=== PATIENT | male | born 1965 | race American Indian/Alaskan Native ===

== ENCOUNTER 2017-10-20 22:34 | Inpatient (IN) | payer OTHER ==
[2017-10-20] MEDS ORDERED: ASPIRIN PO ONE (22:50)
[2017-10-20] MEDS ORDERED: MORPHINE IV ONE (23:45)
[2017-10-20] MEDS ORDERED: TORADOL IV ONE (23:45)
[2017-10-20] MEDS ORDERED: ZOFRAN IV ONE (23:45)
[2017-10-20] MEDS ORDERED: CATAPRES PO ONE (23:45)
--- NOTE | 2017-10-20 23:49 | Emergency Department Report ---
ED Chest Pain HPI - General Chief Complaint: Chest Pain Stated Complaint: CHEST PAIN Time Seen by Provider: 10/20/17 23:38 Source: patient Mode of arrival: Ambulatory Limitations: No Limitations - History of Present Illness Initial Comments: 52-year-old male with no sniffing and past medical history presents to the hospital complaining of right-sided anterior lower rib pain. Pain started earlier today and worsened at 9 PM. Pain is sharp, constant, rated 10/10 intensity, worse with palpation, movement, and deep inspiration. No alleviating factors reported. Positive shortness of breath due to pain. He denies cough, fever, nausea, vomiting, diaphoresis, recent travel, calf tenderness, edema, history of PE/DVT, cocaine use, or smoking history. Patient presents with elevated blood pressure and has not seen a primary care doctor in "a long time". Patient denies heavy lifting or recent trauma. Severity scale (0 -10): 10 - Related Data Home Medications Medication Instructions Recorded Confirmed Last Taken No Known Home Medications [No 10/21/17 10/21/17 Unknown Reported Home Medications] Allergies Allergy/AdvReac Type Severity Reaction Status Date / Time No Known Allergies Allergy Verified 10/20/17 23:42 Heart Score - HEART Score History: Slightly suspicious EKG: Normal Age: 45-65 Risk factors: 1-2 risk factors Troponin: < normal limit HEART Score: 2 ED Review of Systems ROS: Stated complaint: CHEST PAIN Other details as noted in HPI Comment: All other systems reviewed and negative Other: General: Moderate distress secondary to pain Head exam: Atraumatic, normocephalic Eyes exam: Normal appearance, pupils equal reactive to light, extraocular movements intact ENT: Moist mucous membrane, normal oropharynx Neck exam: Normal inspection, full range of motion, no meningismus nontender Respiratory exam: Shallow breathing tachypnea and equal breath sounds, clear to auscultation bilaterally Cardiovascular: Tachycardic regular rhythm, reproducible right anterior lower rib tenderness Abdomen: Soft, nondistended, and nontender, with normal bowel sounds, no rebound, or guarding Extremity: Full range of motion normal inspection no deformity, no calf tenderness or edema Back: Normal Inspection, full range of motion, no tenderness Neurologic: Alert, oriented x3, cranial nerves intact, no motor or sensory deficit Psychiatric: normal affect, normal mood Skin: Warm, dry, intact ED Past Medical Hx - Past Medical History Previous Medical History?: No - Surgical History Past Surgical History?: No - Social History Smoking Status: Former Smoker Substance Use Type: None - Medications Home Medications: Home Medications Medication Instructions Recorded Confirmed Last Taken Type No Known Home Medications [No 10/21/17 10/21/17 Unknown History Reported Home Medications] ED Physical Exam - General Limitations: No Limitations - Other Other exam information: General: Positive distress secondary to pain Head exam: Atraumatic, normocephalic Eyes exam: Normal appearance, pupils equal reactive to light, extraocular movements intact ENT: Moist mucous membrane, normal oropharynx Neck exam: Normal inspection, full range of motion, no meningismus nontender Respiratory exam: Equal breath sounds bilaterally, no wheezes, rales, or crackles Cardiovascular: Tachycardic regular rhythm. Tenderness to right anterior lower ribs Abdomen: Soft, nondistended, and nontender, with normal bowel sounds, no rebound, or guarding Extremity: Full range of motion normal inspection no deformity, no calf tenderness or edema Back: Normal Inspection, full range of motion, no tenderness Neurologic: Alert, oriented x3, cranial nerves intact, no motor or sensory deficit Psychiatric: Positive distress secondary to pain Skin: Warm, dry, intact ED Course Vital Signs 10/20/17 10/20/17 10/21/17 22:59 23:30 00:00 Temperature 98.1 F Pulse Rate 75 118 H 111 H Respiratory 28 H 29 H 17 Rate Blood Pressure 161/126 155/117 180/115 O2 Sat by Pulse 98 96 94 Oximetry 10/21/17 10/21/17 10/21/17 00:30 01:01 01:30 Temperature Pulse Rate 111 H 110 H 109 H Respiratory 26 H 23 30 H Rate Blood Pressure 159/107 169/104 147/109 O2 Sat by Pulse 94 94 96 Oximetry 10/21/17 02:00 Temperature Pulse Rate 102 H Respiratory 27 H Rate Blood Pressure 148/110 O2 Sat by Pulse 93 Oximetry - Reevaluation(s) Reevaluation #1: 10/21/17 03:43 During ED stay patient required morphine, Zofran, Dilaudid, and Toradol to reduce his pain. Blood pressure minimally elevated despite pain control therefore kindly 0.1 mg ordered at this time. LANI score - Lani Score Age > 65: (0) No Aspirin use within the Past 7 Days: (0) No 3 or more CAD Risk Factors: (0) No 2 or more Angina events in past 24 hrs: (0) No Known CAD with more than 50% Stenosis: (0) No ST Deviation Greater than 0.5mm: (0) No ED Medical Decision Making - Lab Data Result diagrams: 10/20/17 23:24 10/20/17 23:24 Lab Results 10/20/17 10/20/17 10/20/17 Range/Units 23:24 23:24 23:24 WBC 11.0 (4.5-11.0) K/mm3 RBC 4.57 (3.65-5.03) M/mm3 Hgb 15.1 (11.8-15.2) gm/dl Hct 43.6 (35.5-45.6) % MCV 95 H (84-94) fl MCH 33 H (28-32) pg MCHC 35 H (32-34) % RDW 13.0 L (13.2-15.2) % Plt Count 280 (140-440) K/mm3 Lymph % (Auto) 11.5 L (13.4-35.0) % [place] % (Auto) 5.9 (0.0-7.3) % Eos % (Auto) 0.5 (0.0-4.3) % Baso % (Auto) 0.8 (0.0-1.8) % Lymph # 1.3 (1.2-5.4) K/mm3 [place] # 0.7 (0.0-0.8) K/mm3 Eos # 0.1 (0.0-0.4) K/mm3 Baso # 0.1 (0.0-0.1) K/mm3 Seg Neutrophils % 81.3 H (40.0-70.0) % Seg Neutrophils # 9.0 H (1.8-7.7) K/mm3 PT 17.1 H (12.2-14.9) Sec. INR 1.32 H (0.87-1.13) D-Dimer 3708.90 H (0-234) ng/mlDDU Sodium 133 L (137-145) mmol/L Potassium 3.7 (3.6-5.0) mmol/L Chloride 93.5 L (98-107) mmol/L Carbon Dioxide 22 (22-30) mmol/L Anion Gap 21 mmol/L BUN 4 L (9-20) mg/dL Creatinine 0.7 L (0.8-1.5) mg/dL Estimated GFR > 60 ml/min BUN/Creatinine Ratio 6 % Glucose 99 (75-100) mg/dL Calcium 9.5 (8.4-10.2) mg/dL Troponin T < 0.010 (0.00-0.029) ng/mL 10/21/17 Range/Units 02:17 WBC (4.5-11.0) K/mm3 RBC (3.65-5.03) M/mm3 Hgb (11.8-15.2) gm/dl Hct (35.5-45.6) % MCV (84-94) fl MCH (28-32) pg MCHC (32-34) % RDW (13.2-15.2) % Plt Count (140-440) K/mm3 Lymph % (Auto) (13.4-35.0) % [place] % (Auto) (0.0-7.3) % Eos % (Auto) (0.0-4.3) % Baso % (Auto) (0.0-1.8) % Lymph # (1.2-5.4) K/mm3 [place] # (0.0-0.8) K/mm3 Eos # (0.0-0.4) K/mm3 Baso # (0.0-0.1) K/mm3 Seg Neutrophils % (40.0-70.0) % Seg Neutrophils # (1.8-7.7) K/mm3 PT (12.2-14.9) Sec. INR (0.87-1.13) D-Dimer (0-234) ng/mlDDU Sodium (137-145) mmol/L Potassium (3.6-5.0) mmol/L Chloride (98-107) mmol/L Carbon Dioxide (22-30) mmol/L Anion Gap mmol/L BUN (9-20) mg/dL Creatinine (0.8-1.5) mg/dL Estimated GFR ml/min BUN/Creatinine Ratio % Glucose (75-100) mg/dL Calcium (8.4-10.2) mg/dL Troponin T < 0.010 (0.00-0.029) ng/mL - EKG Data -: EKG Interpreted by Me EKG shows normal: sinus rhythm, axis (qrs 55), QRS complexes (qrsd 87), ST-T waves (no stemi/ t inv) Rate: tachycardia (120) - EKG Data When compared to previous EKG there are: previous EKG unavailable - Radiology Data Radiology results: report reviewed cxr IMPRESSION: Right basilar opacities suggestive of infiltrate with small/moderate right-sided pleural effusion. Correlation with clinical exam requested. Suggested mild enlargement of the cardiac silhouette. Left lung clear. ct angio chest IMPRESSION: Scattered infiltrates identified in the lower lungs and a small area reactive lung tissue bilateral upper lungs, infiltrative process is suspected. Underlying pathology is not entirely excluded further evaluation after clinical therapy is recommended. A mild right effusion is seen. No pneumothorax. No evidence of pulmonary arterial emboli. - Medical Decision Making Chest pain Treatment with morphine, Toradol, Dilaudid, Zofran Positive infiltrates without signs of pulmonary embolism. Rocephin and azithromycin given Blood cultures pending No signs of pulmonary embolism or dissection Hypertension Newly diagnosed Remains elevated after pain control Clonidine 0.1 mg given - Differential Diagnosis pneumonia, PE, dissection, pneumothorax, pleurisy, rib contusion Critical Care Time: No Critical care attestation.: If time is entered above; I have spent that time in minutes in the direct care of this critically ill patient, excluding procedure time. ED Disposition Clinical Impression: Pneumonia, HTN (hypertension), Right-sided chest pain Disposition: OP ADMIT IP TO THIS HOSP Is pt being admited?: Yes Condition: Stable Time of Disposition: 03:46 (Dr Mcmahon/hosp)
[2017-10-21 00:03] LABS: INR 1.32 (0.87-1.13)
[2017-10-21 00:05] LABS: Basophils # (Auto) 0.1 K/mm3 (0.0-0.1); Basophils % (Auto) 0.8 % (0.0-1.8); Eosinophils # (Auto) 0.1 K/mm3 (0.0-0.4); Eosinophils % (Auto) 0.5 % (0.0-4.3); Hematocrit 43.6 % (35.5-45.6); Hemoglobin 15.1 gm/dl (11.8-15.2); Lymphocytes # (Auto) 1.3 K/mm3 (1.2-5.4); Lymphocytes % (Auto) 11.5 % (13.4-35.0); Mean Corpuscular HGB Conc 35 % (32-34); Mean Corpuscular Hemoglobin 33 pg (28-32); Mean Corpuscular Volume 95 fl (84-94); Monocytes # (Auto) 0.7 K/mm3 (0.0-0.8); Monocytes % (Auto) 5.9 % (0.0-7.3); Platelet Count 280 K/mm3 (140-440); Red Blood Count 4.57 M/mm3 (3.65-5.03)
--- NOTE | 2017-10-21 00:12 | XRay Report ---
FINAL REPORT EXAM: XR CHEST 1V AP HISTORY: right chest pain TECHNIQUE: Single AP portable radiograph of the chest was obtained. PRIORS: None. FINDINGS: Right basilar ill-defined opacities with blunting of the costophrenic angle. No significant left pleural effusion. No pneumothorax. Suggested mild enlargement of the cardiac silhouette. Tortuosity of the thoracic aorta. No acute osseous abnormality. IMPRESSION: Right basilar opacities suggestive of infiltrate with small/moderate right-sided pleural effusion. Correlation with clinical exam requested. Suggested mild enlargement of the cardiac silhouette. Left lung clear.
[2017-10-21 00:13] LABS: BUN/Creatinine Ratio 6; Blood Urea Nitrogen 4 mg/dL (9-20); Calcium 9.5 mg/dL (8.4-10.2); Hemolysis Index 7
[2017-10-21] MEDS ORDERED: ROCEPHIN/NS 1 GM/50 ML 1 GM/50 ML BAG IV ONE (00:18)
[2017-10-21] MEDS ORDERED: ZITHROMAX 500 MG in NACL 0.9% 250ML 250 ML IV ONE (00:18)
[2017-10-21] MEDS ORDERED: cefTRIAXone 1 GM in NACL 0.9% 20 ML IV ONE (00:30)
[2017-10-21] MEDS ORDERED: DILAUDID IV ONE ×2 (02:21→02:57)
[2017-10-21] MEDS ORDERED: DILAUDID ONE (02:22)
--- NOTE | 2017-10-21 03:23 | Cat Scan Report ---
FINAL REPORT PROCEDURE: CT ANGIO CHEST TECHNIQUE: Computerized tomographic angiography of the chest was performed after the IV injection of iodinated nonionic contrast including image processing. The image data was postprocessed using 2-dimensional multiplanar reformatted (MPR) and 3-dimensional (MIP and/or volume rendered) techniques. HISTORY: sharp right sided cp COMPARISON: No prior studies are available for comparison. FINDINGS: Heart and pericardium: Normal. Thoracic aorta: Normal. Pulmonary vasculature: There is no evidence of pulmonary arterial emboli. Lymph nodes: No enlarged thoracic lymph nodes. Lungs: Scattered infiltrative process identified in the right lower lung with moderate effusion noted. Slight infiltrate left lower lung. Small area of increased density identified in both upper lungs anteriorly. This may represent infiltrative process this patient. Further evaluation after clinical therapy is recommended. Underlying pathology is not entirely excluded on the basis of this study. Mild right effusion is noted.. Pleural space: Mild right effusion.. Musculoskeletal structures: No significant abnormality. Upper abdominal structures: No significant abnormality. IMPRESSION: Scattered infiltrates identified in the lower lungs and a small area reactive lung tissue bilateral upper lungs, infiltrative process is suspected. Underlying pathology is not entirely excluded further evaluation after clinical therapy is recommended. A mild right effusion is seen. No pneumothorax. No evidence of pulmonary arterial emboli.
[2017-10-21] MEDS ORDERED: CATAPRES PO ONE (03:43)
[2017-10-21] MEDS ORDERED: APRESOLINE ONE (05:26)
[2017-10-21] MEDS: APRESOLINE IV PRN ×4 (05:29→20:56)
[2017-10-21] MEDS: ZOFRAN IV PRN ×2 (08:00→13:38)
--- NOTE | 2017-10-21 09:10 | History and Physical Report ---
CHIEF COMPLAINT: Right lateral chest wall pain. The patient said pain started yesterday and worst was the evening time. Pain is sharp in consistency, was constant and rated about 10/10. The pain was worse with deep breathing and with movement and palpation. There were no alleviating symptoms. There was also history of associated shortness of breath and no cough. No fever, no nausea, no vomiting, diaphoresis. The patient also noted that the blood pressure was elevated. Still he has not seen his primary care doctor in a very long time. There is no history of trauma or heavy weightlifting. PAST MEDICAL HISTORY: The patient's past medical history is unremarkable. PAST SURGICAL HISTORY: Unremarkable. FAMILY HISTORY: Family history is noncontributory. SOCIAL HISTORY: The patient is a former cigarette smoker but does not smoke currently. Does not use illicit drugs. Does not drink alcohol. MEDICATIONS: There are no known home medications for the patient. ALLERGIES: There are no known drug allergies. REVIEW OF SYSTEMS: CONSTITUTIONAL: There is no fever, no chills, no diaphoresis. HEENT: There is no headache or sore throat. CARDIOVASCULAR: There is lateral chest wall pleuritic pain. No orthopnea. RESPIRATORY: There is shortness of breath with no cough. GASTROINTESTINAL: There is no nausea, no vomiting, no abdominal pain, diarrhea or constipation but there is poor appetite according to the patient. NEUROLOGICAL: There is no numbness, no dizziness, no altered mental status: MUSCULOSKELETAL: No joint pain or swelling. DERMATOLOGICAL: There is no skin rash or itching. GENITOURINARY: There is no dysuria or hematuria. Rest of system review is normal. PHYSICAL EXAMINATION: GENERAL: At the time of exam, the patient was found to be alert, oriented x 3 and not in acute distress. VITAL SIGNS: Shows normal temperature with pulse of 109, respirations 17, blood pressure 171/130 and most current blood pressure has come down to 160/100 as on 5:29 a.m. HEENT: Eyes show pupils to be equal, round, reactive to light and accommodating. Extraocular muscles are intact. NECK: Neck is supple with no JVD or carotid bruit. CARDIOVASCULAR: Showed normal first and second heart sounds with no gallops or murmurs. RESPIRATORY: Show good air entry on both sides of the lung with no abnormal breath. GASTROINTESTINAL: Show abdomen to be full, soft, nontender with no organomegaly or rigidity. NEUROLOGICAL: Neuro exam show no focal deficit. MUSCULOSKELETAL: Show no joint swelling or tenderness. DERMATOLOGICAL: Show no skin rash. GENITOURINARY: Showing no costovertebral angle tenderness. PERTINENT LABS AND IMAGING STUDIES: The patient had CT angiogram of the chest done that shows scattered infiltrate indentified in the lower lung and the small area reactive lung tissue bilaterally in the upper lung. His radiologist say that infiltrative process is suspected and underlying pathology is not entirely excluded. Further evaluation after clinical therapy is recommended. There is finding of a mild right effusion and no pneumothorax. There is no evidence of pulmonary emboli. Also, the patient has chest x-ray done that shows a right basilar opacity suggestive of infiltrate with small to moderate right-sided pleural effusion. Radiologist say to correlate with clinical exam. The patient's lab test shows CBC with normal white, normal hemoglobin and normal hematocrit and CBC differential shows elevated segmented neutrophil of 81.3%. Coagulation studies show elevated PT of 17.1, elevated INR of 1.3 with high D-dimer of 3708. Chemistry shows low sodium of 133, low chloride of 93.5 with unremarkable renal function test and troponin level came back normal. DIAGNOSES: Right lung pneumonia, hypertensive crisis. PLAN: The patient will be admitted to medical floor on telemetry and will be on IV ceftriaxone 1 gram daily and also IV Zithromax 500 mg daily. The patient will also be on Tylenol 650 mg by mouth every 4 hours for fever and headache. DVT prophylaxis will be through heparin 5000 units subcutaneously q.12h. The patient will be on IV hydralazine 10 mg every 4 hours as needed for systolic blood pressure of more than 150 mmHg. Also, the patient will be on oxygen by nasal cannula at 2 liter/minute and will be on IV Zofran 4 mg every 6 hours as needed for nausea and vomiting. The patient's diet will be 2 g sodium diet. JOB# [id number] OCN/NTS
[2017-10-21] MEDS ORDERED: ROCEPHIN/NS 1 GM/50 ML 1 GM/50 ML BAG IV SCH (10:00)
[2017-10-21] MEDS: HEPARIN SUB-Q SCH ×2 (10:32→21:06)
--- NOTE | 2017-10-21 12:09 | Progress Note ---
Assessment and Plan Assessment and plan: Mr. Godinez is a 52 yo man with a history of alcohol dependency and ex smoker ( quit 4 months ago) who pw chest pains admitted for hypertension crisis and pneumonia CTA chest IMPRESSION: Scattered infiltrates identified in the lower lungs and a small area reactive lung tissue bilateral upper lungs, infiltrative process is suspected. Underlying pathology is not entirely excluded further evaluation after clinical therapy is recommended. A mild right effusion is seen. No pneumothorax. No evidence of pulmonary arterial emboli. -Sepsis, poa as evident rr 28, hr 109 due to pna: treat with iv abx, ivf, follow ctx -Bilateral aspiration pneumonia: continue abx -Hypertension urgency -Mild alcohol withdrawal: start CiWA protocol -DVT prophylaxis: sq heparin History Interval history: Patient was seen and examined. Follow-up on current diagnosis chest pains which he denies currently. Overnight uneventful. Patient denies any chest pain, shortness breath, nausea/vomiting or severe headaches. Imaging, nursing note, chart, labs and old chart reviewed. Discussed with patient. Hospitalist Physical - Physical exam Narrative exam: GEN: WDWN, NAD, Awake, Alert, Orientated x 3 HEENT: NCAT, EOMI, PERRL, OP Clear NECK: supple, no adenopathy, no thyromegaly, no JVD CVS/HEART: RRR, normal S1S2, pulses present bilaterally CHEST/LUNGS: coarse bs bases, diminished bs b, Symmetrical chest expansion, good air entry bilaterally GI/Abdomen: soft, NTND, good bowel sounds, no guarding or rebound /Bladder: no suprapubic tenderness, no CVA or paraspinal tenderness EXT/Skin: no c/c/e, no obvious rash MSK: FROM x 4 Neuro: CN 2-12 grossly intact, mild tremors, Psych: anxious - Constitutional Vitals: Temp Pulse Resp BP Pulse Ox 99.1 F 108 H 24 157/101 94 10/21/17 08:21 10/21/17 08:21 10/21/17 08:21 10/21/17 10:32 10/21/17 08:21 Results - Labs CBC & Chem 7: 10/20/17 23:24 10/20/17 23:24 Labs: Laboratory Last Values WBC 11.0 K/mm3 (4.5-11.0) 10/20/17 23:24 RBC 4.57 M/mm3 (3.65-5.03) 10/20/17 23: Hgb 15.1 gm/dl (11.8-15.2) 10/20/17 23: Hct 43.6 % (35.5-45.6) 10/20/17 23:24 MCV 95 fl (84-94) H 10/20/17 23:24 MCH 33 pg (28-32) H 10/20/17 23: MCHC 35 % (32-34) H 10/20/17 23:24 RDW 13.0 % (13.2-15.2) L 10/20/17 23:24 Plt Count 280 K/mm3 (140-440) 10/20/17 23: Lymph % (Auto) 11.5 % (13.4-35.0) L 10/20/17 23: [place] % (Auto) 5.9 % (0.0-7.3) 10/20/17: Eos % (Auto) 0.5 % (0.0-4.3) 10/20/17 23: Baso % (Auto) 0.8 % (0.0-1.8) 10/20/17 23: Lymph # 1.3 K/mm3 (1.2-5.4) 10/20/17: [place] # 0.7 K/mm3 (0.0-0.8) 10/20/17 23: Eos # 0.1 K/mm3 (0.0-0.4) 10/20/17: Baso # 0.1 K/mm3 (0.0-0.1) 10/20/17 23:24 Seg Neutrophils % 81.3 % (40.0-70.0) H 10/20/17 23: Seg Neutrophils # 9.0 K/mm3 (1.8-7.7) H 10/20/17 23:24 PT 17.1 Sec. (12.2-14.9) H 10/20/17 23:24 INR 1.32 (0.87-1.13) H 10/20/17 23:24 D-Dimer 3708.90 ng/mlDDU (0-234) H 10/20/17 23:24 Sodium 133 mmol/L (137-145) L 10/20/17 23:24 Potassium 3.7 mmol/L (3.6-5.0) 10/20/17 23:24 Chloride 93.5 mmol/L (98-107) L 10/20/17 23:24 Carbon Dioxide 22 mmol/L (22-30) 10/20/17 23:24 Anion Gap 21 mmol/L 10/20/17 23:24 BUN 4 mg/dL (9-20) L 10/20/17 23:24 Creatinine 0.7 mg/dL (0.8-1.5) L 10/20/17 23:24 Estimated GFR > 60 ml/min 10/20/17 23:24 BUN/Creatinine Ratio 6 % 10/20/17 23:24 Glucose 99 mg/dL (75-100) 10/20/17 23:24 Calcium 9.5 mg/dL (8.4-10.2) 10/20/17 23:24 Troponin T < 0.010 ng/mL (0.00-0.029) 10/21/17 04:59
[2017-10-21] MEDS ORDERED: HALDOL IV PRN (12:21)
[2017-10-21] MEDS ORDERED: ATIVAN IV PRN ×2 (12:21)
[2017-10-21] MEDS: TYLENOL PO PRN ×3 (13:38→22:24)
[2017-10-21] MEDS: FOLVITE PO SCH (13:39)
[2017-10-21] MEDS: NORVASC PO SCH (13:39)
[2017-10-21] MEDS: VITAMIN B-1 PO SCH (13:39)
[2017-10-21] MEDS: ZITHROMAX PO SCH (21:04)
[2017-10-21] MEDS: cefTRIAXone 1 GM in NACL 0.9% 20 ML IV SCH (21:07)
[2017-10-21] MEDS ORDERED: ZITHROMAX 500 MG in NACL 0.9% 250ML 250 ML IV SCH (22:00)
[2017-10-22] MEDS: TYLENOL PO PRN ×3 (04:51→19:34)
[2017-10-22 07:07] LABS: Hemoglobin 14.6 gm/dl (11.8-15.2); Mean Corpuscular HGB Conc 33 % (32-34); Mean Corpuscular Hemoglobin 32 pg (28-32); Mean Corpuscular Volume 97 fl (84-94); Platelet Count 256 K/mm3 (140-440); Red Blood Count 4.54 M/mm3 (3.65-5.03); Red Cell Distribution Width 13.1 % (13.2-15.2)
[2017-10-22 07:33] LABS: BUN/Creatinine Ratio 10; Blood Urea Nitrogen 8 mg/dL (9-20); Calcium 9.4 mg/dL (8.4-10.2); Hemolysis Index 5
--- NOTE | 2017-10-22 11:01 | Progress Note ---
Assessment and Plan Assessment and plan: -Sepsis. Continue to treat with iv abx, ivf, follow ctx -Bilateral aspiration pneumonia: continue abx. -Accelerated Hypertension. Continue antihypertensive medications. -Mild alcohol withdrawal: Continue CiWA protocol -DVT prophylaxis: sq heparin History Interval history: Mr. Godinez is a 52 yo man with a history of alcohol dependency and ex smoker ( quit 4 months ago) who pw chest pains admitted for hypertension crisis and pneumonia Hospitalist Physical - Constitutional Vitals: Temp Pulse Resp BP Pulse Ox 98.4 F 98 H 28 H 142/102 95 10/22/17 08:01 10/22/17 08:01 10/22/17 08:01 10/22/17 08:01 10/22/17 08:01 General appearance: Present: no acute distress, well-nourished - EENT Eyes: Present: PERRL, EOM intact ENT: hearing intact, clear oral mucosa, dentition normal - Neck Neck: Present: supple, normal ROM - Respiratory Respiratory effort: normal Respiratory: bilateral: diminished, rhonchi - Cardiovascular Rhythm: regular Heart Sounds: Present: S1 & S2. Absent: gallop, rub - Extremities Extremities: no ischemia, No edema, Full ROM - Abdominal General gastrointestinal: soft, non-tender, non-distended, normal bowel sounds - Integumentary Integumentary: Present: clear, warm, dry - Neurologic Neurologic: CNII-XII intact, moves all extremities Results - Labs CBC & Chem 7: 10/22/17 06:34 10/22/17 06:34 Labs: Laboratory Last Values WBC 11.4 K/mm3 (4.5-11.0) H 10/22/17 06:34 RBC 4.54 M/mm3 (3.65-5.03) 10/22/17 06:34 Hgb 14.6 gm/dl (11.8-15.2) 10/22/17 06:34 Hct 44.0 % (35.5-45.6) 10/22/17 06:34 MCV 97 fl (84-94) H 10/22/17 06:34 MCH 32 pg (28-32) 10/22/17 06:34 MCHC 33 % (32-34) 10/22/17 06:34 RDW 13.1 % (13.2-15.2) L 10/22/17 06:34 Plt Count 256 K/mm3 (140-440) 10/22/17 06:34 Lymph % (Auto) 11.5 % (13.4-35.0) L 10/20/17 23:24 [place] % (Auto) 5.9 % (0.0-7.3) 10/20/17 23:24 Eos % (Auto) 0.5 % (0.0-4.3) 10/20/17 23:24 Baso % (Auto) 0.8 % (0.0-1.8) 10/20/17 23:24 Lymph # 1.3 K/mm3 (1.2-5.4) 10/20/17 23:24 [place] # 0.7 K/mm3 (0.0-0.8) 10/20/17 23:24 Eos # 0.1 K/mm3 (0.0-0.4) 10/20/17 23:24 Baso # 0.1 K/mm3 (0.0-0.1) 10/20/17 23:24 Seg Neutrophils % 81.3 % (40.0-70.0) H 10/20/17 23:24 Seg Neutrophils # 9.0 K/mm3 (1.8-7.7) H 10/20/17 23:24 PT 17.1 Sec. (12.2-14.9) H 10/20/17 23:24 INR 1.32 (0.87-1.13) H 10/20/17 23:24 D-Dimer 3708.90 ng/mlDDU (0-234) H 10/20/17 23:24 Sodium 135 mmol/L (137-145) L 10/22/17 06:34 Potassium 4.2 mmol/L (3.6-5.0) 10/22/17 06:34 Chloride 93.5 mmol/L (98-107) L 10/22/17 06:34 Carbon Dioxide 26 mmol/L (22-30) 10/22/17 06:34 Anion Gap 20 mmol/L 10/22/17 06:34 BUN 8 mg/dL (9-20) L 10/22/17 06:34 Creatinine 0.8 mg/dL (0.8-1.5) 10/22/17 06:34 Estimated GFR > 60 ml/min 10/22/17 06:34 BUN/Creatinine Ratio 10 % 10/22/17 06:34 Glucose 94 mg/dL (75-100) 10/22/17 06:34 Calcium 9.4 mg/dL (8.4-10.2) 10/22/17 06:34 Magnesium 2.00 mg/dL (1.7-2.3) 10/22/17 06:34 Troponin T < 0.010 ng/mL (0.00-0.029) 10/21/17 04:59
[2017-10-22] MEDS: FOLVITE PO SCH (11:17)
[2017-10-22] MEDS: HEPARIN SUB-Q SCH ×2 (11:17→22:24)
[2017-10-22] MEDS: VITAMIN B-1 PO SCH (11:18)
[2017-10-22] MEDS: NORVASC PO SCH (11:18)
[2017-10-22] MEDS: cefTRIAXone 1 GM in NACL 0.9% 20 ML IV SCH (22:23)
[2017-10-22] MEDS: ZITHROMAX PO SCH (22:24)
[2017-10-23] MEDS: TYLENOL PO PRN (04:38)
[2017-10-23 09:17] LABS: Basophils # (Auto) 0.1 K/mm3 (0.0-0.1); Basophils % (Auto) 0.6 % (0.0-1.8); Eosinophils # (Auto) 0.5 K/mm3 (0.0-0.4); Hemoglobin 15.4 gm/dl (11.8-15.2); Lymphocytes # (Auto) 1.7 K/mm3 (1.2-5.4); Lymphocytes % (Auto) 16.8 % (13.4-35.0); Mean Corpuscular HGB Conc 35 % (32-34); Mean Corpuscular Hemoglobin 33 pg (28-32); Mean Corpuscular Volume 96 fl (84-94); Monocytes # (Auto) 0.8 K/mm3 (0.0-0.8); Monocytes % (Auto) 7.6 % (0.0-7.3); Platelet Count 263 K/mm3 (140-440); Red Blood Count 4.59 M/mm3 (3.65-5.03); Red Cell Distribution Width 12.9 % (13.2-15.2)
[2017-10-23 09:27] LABS: BUN/Creatinine Ratio 14; Blood Urea Nitrogen 11 mg/dL (9-20); Calcium 8.9 mg/dL (8.4-10.2); Hemolysis Index 3
--- NOTE | 2017-10-23 09:50 | Progress Note ---
Assessment and Plan Assessment and plan: -Sepsis. Continue to treat with iv abx, ivf, follow cx -Bilateral aspiration pneumonia: continue abx. Recheck chest x-ray. -Accelerated Hypertension. Continue antihypertensive medications. -Mild alcohol withdrawal: Continue CiNY protocol -DVT prophylaxis: sq heparin History Interval history: Mr. Godinez is a 52 yo man with a history of alcohol dependency and ex smoker ( quit 4 months ago) who pw chest pains admitted for hypertension crisis and pneumonia Hospitalist Physical - Constitutional Vitals: Temp Pulse Resp BP Pulse Ox 98.3 F 85 18 121/85 98 10/22/17 23:15 10/22/17 23:15 10/22/17 23:15 10/22/17 23:15 10/22/17 23:15 General appearance: Present: no acute distress, well-nourished - EENT Eyes: Present: PERRL, EOM intact ENT: hearing intact, clear oral mucosa, dentition normal - Neck Neck: Present: supple, normal ROM - Respiratory Respiratory effort: normal Respiratory: bilateral: diminished, rhonchi - Cardiovascular Rhythm: regular Heart Sounds: Present: S1 & S2. Absent: gallop, rub - Extremities Extremities: no ischemia, No edema, Full ROM - Abdominal General gastrointestinal: soft, non-tender, non-distended, normal bowel sounds - Integumentary Integumentary: Present: clear, warm, dry - Neurologic Neurologic: CNII-XII intact, moves all extremities Results - Labs CBC & Chem 7: 10/23/17 08:11 10/23/17 08:11 Labs: Laboratory Last Values WBC 9.9 K/mm3 (4.5-11.0) 10/23/17 08:11 RBC 4.59 M/mm3 (3.65-5.03) 10/23/17 08:11 Hgb 15.4 gm/dl (11.8-15.2) H 10/23/17 08:11 Hct 44.0 % (35.5-45.6) 10/23/17 08:11 MCV 96 fl (84-94) H 10/23/17 08:11 MCH 33 pg (28-32) H 10/23/17 08:11 MCHC 35 % (32-34) H 10/23/17 08:11 RDW 12.9 % (13.2-15.2) L 10/23/17 08:11 Plt Count 263 K/mm3 (140-440) 10/23/17 08:11 Lymph % (Auto) 16.8 % (13.4-35.0) 10/23/17 08:11 [place] % (Auto) 7.6 % (0.0-7.3) H 10/23/17 08:11 Eos % (Auto) 5.0 % (0.0-4.3) H 10/23/17 08:11 Baso % (Auto) 0.6 % (0.0-1.8) 10/23/17 08:11 Lymph # 1.7 K/mm3 (1.2-5.4) 10/23/17 08:11 [place] # 0.8 K/mm3 (0.0-0.8) 10/23/17 08:11 Eos # 0.5 K/mm3 (0.0-0.4) H 10/23/17 08:11 Baso # 0.1 K/mm3 (0.0-0.1) 10/23/17 08:11 Seg Neutrophils % 70.0 % (40.0-70.0) 10/23/17 08:11 Seg Neutrophils # 6.9 K/mm3 (1.8-7.7) 10/23/17 08:11 PT 17.1 Sec. (12.2-14.9) H 10/20/17 23:24 INR 1.32 (0.87-1.13) H 10/20/17 23:24 D-Dimer 3708.90 ng/mlDDU (0-234) H 10/20/17 23:24 Sodium 136 mmol/L (137-145) L 10/23/17 08:11 Potassium 3.6 mmol/L (3.6-5.0) 10/23/17 08:11 Chloride 97.0 mmol/L (98-107) L 10/23/17 08:11 Carbon Dioxide 24 mmol/L (22-30) 10/23/17 08:11 Anion Gap 19 mmol/L 10/23/17 08:11 BUN 11 mg/dL (9-20) 10/23/17 08:11 Creatinine 0.8 mg/dL (0.8-1.5) 05/02/18 08:11 Estimated GFR > 60 ml/min 10/23/17 08:11 BUN/Creatinine Ratio 14 % 10/23/17 08:11 Glucose 81 mg/dL (75-100) 10/23/17 08:11 Calcium 8.9 mg/dL (8.4-10.2) 10/23/17 08:11 Magnesium 2.00 mg/dL (1.7-2.3) 10/22/17 06:34 Troponin T < 0.010 ng/mL (0.00-0.029) 10/21/17 04:59
[2017-10-23] MEDS: HEPARIN SUB-Q SCH ×2 (10:34→23:14)
[2017-10-23] MEDS: VITAMIN B-1 PO SCH (10:34)
[2017-10-23] MEDS: FOLVITE PO SCH (10:34)
[2017-10-23] MEDS: NORVASC PO SCH (10:37)
[2017-10-23] MEDS: TORADOL IV PRN ×2 (10:38→20:22)
[2017-10-23] MEDS: cefTRIAXone 1 GM in NACL 0.9% 20 ML IV SCH (23:13)
[2017-10-23] MEDS: ZITHROMAX PO SCH (23:14)
[2017-10-24] MEDS: TORADOL IV PRN (03:45)
[2017-10-24 07:07] LABS: Basophils # (Auto) 0.1 K/mm3 (0.0-0.1); Basophils % (Auto) 0.9 % (0.0-1.8); Eosinophils # (Auto) 0.5 K/mm3 (0.0-0.4); Hematocrit 43.2 % (35.5-45.6); Hemoglobin 14.6 gm/dl (11.8-15.2); Lymphocytes # (Auto) 1.6 K/mm3 (1.2-5.4); Mean Corpuscular HGB Conc 34 % (32-34); Mean Corpuscular Hemoglobin 33 pg (28-32); Mean Corpuscular Volume 97 fl (84-94); Monocytes # (Auto) 0.7 K/mm3 (0.0-0.8); Monocytes % (Auto) 9.2 % (0.0-7.3); Platelet Count 264 K/mm3 (140-440); Red Blood Count 4.47 M/mm3 (3.65-5.03); Red Cell Distribution Width 12.8 % (13.2-15.2)
[2017-10-24 07:21] LABS: BUN/Creatinine Ratio 16; Blood Urea Nitrogen 11 mg/dL (9-20); Calcium 8.8 mg/dL (8.4-10.2); Hemolysis Index 18
--- NOTE | 2017-10-24 09:13 | Progress Note ---
Assessment and Plan Assessment and plan: -Sepsis. Continue to treat with iv abx, ivf, follow cx -Bilateral aspiration pneumonia: continue abx. Recheck chest x-ray. -Accelerated Hypertension. Continue antihypertensive medications. -Mild alcohol withdrawal: Continue CiAL protocol -DVT prophylaxis: sq heparin History Interval history: Mr. Godinez is a 52 yo man with a history of alcohol dependency and ex smoker ( quit 4 months ago) who pw chest pains admitted for hypertension crisis and pneumonia Hospitalist Physical - Constitutional Vitals: Temp Pulse Resp BP Pulse Ox 98.2 F 80 20 118/84 97 10/24/17 08:09 10/24/17 08:09 10/24/17 08:09 10/24/17 08:09 10/24/17 08:09 General appearance: Present: no acute distress, well-nourished - EENT Eyes: Present: PERRL, EOM intact ENT: hearing intact, clear oral mucosa, dentition normal - Neck Neck: Present: supple, normal ROM - Respiratory Respiratory effort: normal Respiratory: bilateral: rhonchi - Cardiovascular Rhythm: regular Heart Sounds: Present: S1 & S2. Absent: gallop, rub - Extremities Extremities: no ischemia, No edema, Full ROM - Abdominal General gastrointestinal: soft, non-tender, non-distended, normal bowel sounds - Integumentary Integumentary: Present: clear, warm, dry - Neurologic Neurologic: CNII-XII intact, moves all extremities Results - Labs CBC & Chem 7: 10/24/17 06:35 10/24/17 06:35 Labs: Laboratory Last Values WBC 7.9 K/mm3 (4.5-11.0) 10/24/17 06:35 RBC 4.47 M/mm3 (3.65-5.03) 10/24/17 06:35 Hgb 14.6 gm/dl (11.8-15.2) 10/24/17 06:35 Hct 43.2 % (35.5-45.6) 10/24/17 06:35 MCV 97 fl (84-94) H 10/24/17 06:35 MCH 33 pg (28-32) H 10/24/17 06:35 MCHC 34 % (32-34) 10/24/17 06:35 RDW 12.8 % (13.2-15.2) L 10/24/17 06:35 Plt Count 264 K/mm3 (140-440) 10/24/17 06:35 Lymph % (Auto) 21.0 % (13.4-35.0) 10/24/17 06:35 [place] % (Auto) 9.2 % (0.0-7.3) H 10/24/17 06:35 Eos % (Auto) 7.0 % (0.0-4.3) H 10/24/17 06:35 Baso % (Auto) 0.9 % (0.0-1.8) 10/24/17 06:35 Lymph # 1.6 K/mm3 (1.2-5.4) 10/24/17 06:35 [place] # 0.7 K/mm3 (0.0-0.8) 10/24/17 06:35 Eos # 0.5 K/mm3 (0.0-0.4) H 10/24/17 06:35 Baso # 0.1 K/mm3 (0.0-0.1) 10/24/17 06:35 Seg Neutrophils % 61.9 % (40.0-70.0) 10/24/17 06:35 Seg Neutrophils # 4.9 K/mm3 (1.8-7.7) 10/24/17 06:35 PT 17.1 Sec. (12.2-14.9) H 10/20/17 23:24 INR 1.32 (0.87-1.13) H 10/20/17 23:24 D-Dimer 3708.90 ng/mlDDU (0-234) H 10/20/17 23:24 Sodium 133 mmol/L (137-145) L 10/24/17 06:35 Potassium 3.7 mmol/L (3.6-5.0) 10/24/17 06:35 Chloride 95.7 mmol/L (98-107) L 10/24/17 06:35 Carbon Dioxide 23 mmol/L (22-30) 10/24/17 06:35 Anion Gap 18 mmol/L 10/24/17 06:35 BUN 11 mg/dL (9-20) 10/24/17 06:35 Creatinine 0.7 mg/dL (0.8-1.5) L 10/24/17 06:35 Estimated GFR > 60 ml/min 10/24/17 06:35 BUN/Creatinine Ratio 16 % 10/24/17 06:35 Glucose 83 mg/dL (75-100) 10/24/17 06:35 Calcium 8.8 mg/dL (8.4-10.2) 10/24/17 06:35 Magnesium 2.00 mg/dL (1.7-2.3) 10/22/17 06:34 Troponin T < 0.010 ng/mL (0.00-0.029) 10/21/17 04:59
[2017-10-24] MEDS: FOLVITE PO SCH (09:40)
[2017-10-24] MEDS: HEPARIN SUB-Q SCH ×2 (09:40→22:42)
[2017-10-24] MEDS: VITAMIN B-1 PO SCH (09:40)
[2017-10-24] MEDS: NORVASC PO SCH (09:40)
--- NOTE | 2017-10-24 16:38 | XRay Report ---
FINAL REPORT EXAM: XR CHEST ROUTINE 2V HISTORY: pna TECHNIQUE: Two view chest PA and lateral PRIORS: None. FINDINGS: Cardiac and mediastinal contours are unremarkable. No focal pulmonary infiltrate is identified. No pleural fluid collection seen. Pulmonary vasculature is unremarkable. There is tenting of the right hemidiaphragm. IMPRESSION: No acute abnormality identified in the chest
[2017-10-24] MEDS: TYLENOL PO PRN (17:34)
[2017-10-24] MEDS: ZITHROMAX PO SCH (22:40)
[2017-10-24] MEDS: cefTRIAXone 1 GM in NACL 0.9% 20 ML IV SCH (22:41)
[2017-10-24] MEDS ORDERED: PERCOCET 5/325 PO PRN (23:00)
[2017-10-25 06:25] LABS: Basophils # (Auto) 0.1 K/mm3 (0.0-0.1); Eosinophils # (Auto) 0.5 K/mm3 (0.0-0.4); Eosinophils % (Auto) 6.1 % (0.0-4.3); Hematocrit 42.8 % (35.5-45.6); Hemoglobin 14.6 gm/dl (11.8-15.2); Lymphocytes # (Auto) 1.5 K/mm3 (1.2-5.4); Lymphocytes % (Auto) 17.1 % (13.4-35.0); Mean Corpuscular HGB Conc 34 % (32-34); Mean Corpuscular Hemoglobin 33 pg (28-32); Mean Corpuscular Volume 97 fl (84-94); Monocytes # (Auto) 0.8 K/mm3 (0.0-0.8); Monocytes % (Auto) 9.6 % (0.0-7.3); Platelet Count 266 K/mm3 (140-440); Red Blood Count 4.42 M/mm3 (3.65-5.03); Red Cell Distribution Width 12.7 % (13.2-15.2)
[2017-10-25 07:10] LABS: BUN/Creatinine Ratio 11; Blood Urea Nitrogen 8 mg/dL (9-20); Calcium 8.7 mg/dL (8.4-10.2); Hemolysis Index 13
--- NOTE | 2017-10-25 08:22 | Discharge Summary ---
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 Pt seen and evaluated in ED and found to have LLL Pneumonia, Sepsis, and UTI. Pt denied chills, CP, Palpitations, NVD, Syncope , Hemoptysis, BRBPR, Trauma, headache, Abdominal pain, or recent ill contacts. Patient complained of chest pain that was consistent with pleurisy and resolved prior to discharge. Patient received IV antibiotics and blood cultures were obtained which were found to be negative. Follow-up chest x-ray revealed resolution of the pneumonia. Patient was clinically improved and felt to have received maximal hospital benefit for discharge. Dedicated discharge time 34 minutes. Disposition: DC-01 TO HOME OR SELFCARE Time spent for discharge: 34 - Discharge Diagnoses (1) UTI (urinary tract infection) Status: Acute (2) HTN (hypertension) Status: Acute (3) Pneumonia Status: Acute (4) Sepsis Status: Acute Core Measure Documentation - Palliative Care Palliative Care/ Comfort Measures: Not Applicable - Core Measures Any of the following diagnoses?: none Exam - Constitutional Vitals: Temp Pulse Resp BP Pulse Ox 98.3 F 74 36 H 137/102 96 10/25/17 03:25 10/25/17 03:25 10/25/17 03:25 10/25/17 03:25 10/25/17 03:25 General appearance: Present: no acute distress, well-nourished - EENT Eyes: Present: PERRL ENT: hearing intact, clear oral mucosa - Neck Neck: Present: supple, normal ROM - Respiratory Respiratory effort: normal Respiratory: bilateral: CTA - Cardiovascular Heart Sounds: Present: S1 & S2. Absent: rub, click - Extremities Extremities: pulses symmetrical, No edema Peripheral Pulses: within normal limits - Abdominal General gastrointestinal: Present: soft, non-tender, non-distended, normal bowel sounds Male genitourinary: Present: normal - Integumentary Integumentary: Present: clear, warm, dry - Musculoskeletal Musculoskeletal: gait normal, strength equal bilaterally - Psychiatric Psychiatric: appropriate mood/affect, intact judgment & insight - Neurologic Neurologic: CNII-XII intact, moves all extremities Plan Activity: no restrictions Weight Bearing Status: Full Weight Bearing Diet: regular Follow up with: PRIMARY CARE,MD [Primary Care Provider] - 7 Days Prescriptions: amLODIPine [Norvasc] 10 mg PO QDAY #30 tablet Azithromycin 250 mg PO DAILY #7 tablet Cefuroxime [Ceftin] 500 mg PO Q12H #14 tablet Folic Acid [Folvite] 1 mg PO QDAY #30 tablet oxyCODONE /ACETAMINOPHEN [Percocet 5/325 mg] 1 tab PO Q4H PRN #10 tablet PRN Reason: Pain, Moderate (4-6) Thiamine [Vitamin B-1] 100 mg PO QDAY #30 tablet
[2017-10-25 08:31] VITALS: BP 130/91
[2017-10-25] MEDS: VITAMIN B-1 PO SCH (10:24)
[2017-10-25] MEDS: FOLVITE PO SCH (10:24)
[2017-10-25] MEDS: NORVASC PO SCH (10:24)
[2017-10-25] MEDS: HEPARIN SUB-Q SCH (10:50)
== END 2017-10-25 15:00 | disposition home or self-care (01) | DRG 871 ==
LOC: EDBD → ED 22:34 → 3A 10-21 04:33
PROVIDERS: ADMIT Internal Medicine; ATTEND Hospitalist
DX: A41.9 Sepsis, unspecified organism (principal); J69.0 Pneumonitis due to inhalation of food and vomit; F10.239 Alcohol dependence with withdrawal, unspecified; N39.0 Urinary tract infection, site not specified; I16.0 Hypertensive urgency; I10 Essential (primary) hypertension; K21.9 Gastro-esophageal reflux disease without esophagitis; M19.90 Unspecified osteoarthritis, unspecified site
CPT/HCPCS: 36415; 71045; 71046; 71275; 80048; 83735; 84484; 85025; 85027; 85379; 85610; 87040; 93005; 93010; 96365; 96375; J0360; J0456; J0696; J1170; J1644; J1885; J2270; J2405; J7050; Q9967